=== PATIENT | female | born 1990 | race Caucasian/White ===

== ENCOUNTER 2016-07-25 16:50 | Emergency (ER) | payer MEDICAID ==
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
== END 2016-07-25 17:46 | disposition home or self-care (01) ==
LOC: ER 16:50
DX: O9A.211 Injury, poisoning and certain other consequences of external causes complicating pregnancy, first trimester (principal); R51 Headache; Z3A.01 Less than 8 weeks gestation of pregnancy; V49.49XA Driver injured in collision with other motor vehicles in traffic accident, initial encounter